=== PATIENT | male | born 1960 | race Caucasian/White ===

== ENCOUNTER 2020-07-04 20:53 | Emergency (ER) | payer MEDICAID ==
[~2020-07-04] VITALS: Ht 177.8 cm; Wt 77.3 kg
[2020-07-04 21:09] VITALS: BP 140/83
== END 2020-07-05 00:21 | disposition left against medical advice (07) ==
LOC: EMS 20:53
DX: M79.641 Pain in right hand (principal); Z53.21 Procedure and treatment not carried out due to patient leaving prior to being seen by health care provider